=== PATIENT | male | born 1965 | race Caucasian/White ===

== ENCOUNTER → 2018-04-13 15:13 | Outpatient (CLI) | payer MEDICAID ==
[~2018-04-13 15:13] MED LIST: BAYER CHEWABLE81 MG PO; GLUCOPHAGE1000 MG PO; GLUCOTROL 5 MG T5 MG PO; NAPROSYN500 MG PO
[2018-04-19 06:34] VITALS: BMI 27.3
== END | disposition home or self-care (01) ==
LOC: D.CT 15:13
DX: I73.9 Peripheral vascular disease, unspecified (principal)

== ENCOUNTER → 2018-04-19 05:37 | Outpatient (CLI) | payer MEDICAID ==
[~2018-04-19] VITALS: Ht 185.4 cm; Wt 94.1 kg
--- NOTE | ~2018-04-19 | HEMODYNAMI ---
PATIENT:DONNIE AQUINO [place] MEDICAL RECORD: [id number] : 63 [id number] ADMISSION DATE: 04/19/18 Generatedon:04/19/201810:08 Patient name: DONNIE AQUINO Patient #: [id number] SSN: : 1965 Date of study: 04/19/2018 Page: Of Hemodynamic Procedure Report Patient Data Patient Demographics Procedure consent was obtained First Name: DONNIE Gender: Male Last Name: KENIA : 1965 [facility] Initial: VICTORIA Age: 52 year(s) Patient #: [id number] Race: Unknown Additional ID: [id number] Contact details Address: [address] State: [place] City: [place] Zip code: [address] Past Medical History Allergies: No known allergies Admission Admission Data Admission Date: 04/19/2018 Admission Time: 5:37 Procedure Procedure Types Cath Procedure Peripheral Cath Diagnostic Procedure Cath Peripheral Abd/Extremity Extremities Bilat Lower Extremity Procedure Description Procedure Date Procedure Date: 04/19/2018 Procedure Start Time: 8:32 Procedure Staff Name Function Alvaro Garcia MD Performing Physician Ani Painting RT Hurl Shaker Griselda Allen RN Nurse Pranay Flores RT Scrub Procedure Data Cath Procedure Fluoroscopy Diagnostic fluoroscopy Total fluoroscopy Time: time: 11.3 min 11.3 min Diagnostic fluoroscopy Total fluoroscopy dose: 679 dose: 679 mGy mGy Contrast Material Contrast Material Type Amount (ml) Isovue 300 105 Entry Location Entry Primary Successful Side Size Upsize Upsize Entry Closure Succes sful Closure Location (Fr) 1 (Fr) 2 (Fr) Remarks Device Remarks Femoral Exoseal artery Procedure Medications Medication Administration Route Dosage Lidocaine 1% added to field 20 Heparin Flush Bag added to field 3 bags (1000units/500ml NS) Fentanyl I.V. 50 mcg Versed I.V. 1 mg Fentanyl I.V. 50 mcg Versed I.V. 1 mg Heparin Bolus I.V. 5000 units Nitroglycerin IC/IA I.A. 200 mcg Nitroglycerin IC/IA I.A. 200 mcg Nitroglycerin IC/IA I.A. 200 mcg Hemodynamics Rest Heart Rate: 69 (bpm) Snapshots Pre Cath Intra NCS Post Cath Vital Signs Time Heart Resp SPO2 etCO2 NIBP (mmHg) Rhythm Pain Sedation Rate (ipm) (%) (mmHg) Status Level (bpm) 8:00:50 68 12 0 127/66(88) NSR 0 (11) 10(A) , No pain 8:05:01 66 37 100 0 138/75(104) NSR 0 (11) 10(A) , No pain 8:09:17 68 22 100 24.7 123/69(92) NSR 0 (11) 10(A) , No pain 8:13:29 67 16 98 26.2 130/67(93) NSR 0 (11) 10(A) , No pain 8:17:43 66 11 84 27.7 115/67(86) NSR 0 (11) 10(A) , No pain 8:21:53 67 34 99 28.5 128/70(98) NSR 0 (11) 10(A) , No pain 8:26:07 68 21 98 27.7 123/68(94) NSR 0 (11) 10(A) , No pain 8:30:23 68 17 25.5 122/64(96) NSR 0 (11) 10(A) , No pain 8:34:39 67 19 21.7 112/62(94) NSR 1 (11) 10(A) , Very mild 8:38:51 65 26 22.5 127/64(97) NSR 1 (11) 10(A) , Very mild 8:43:07 68 17 100 39 124/69(98) NSR 0 (11) 8(A) , No pain 8:47:26 69 16 100 35.3 125/62(96) NSR 0 (11) 8(A) , No pain 8:51:40 67 15 100 15 120/70(92) NSR 0 (11) 8(A) , No pain 8:55:53 67 14 100 23.2 119/66(92) NSR 0 (11) 8(A) , No pain 9:00:07 67 19 100 33.8 108/64(90) NSR 0 (11) 8(A) , No pain 9:04:19 69 13 99 39 116/59(87) NSR 0 (11) 8(A) , No pain 9:08:33 69 10 99 39 116/64(91) NSR 0 (11) 8(A) , No pain 9:12:43 69 12 99 15 122/66(94) NSR 0 (11) 8(A) , No pain 9:16:55 67 14 99 0 126/73(101) NSR 0 (11) 8(A) , No pain 9:21:11 69 13 100 25.5 123/67(92) NSR 0 (11) 8(A) , No pain 9:25:25 66 15 99 36 116/69(89) NSR 0 (11) 8(A) , No pain 9:29:37 65 17 99 34.5 117/65(97) NSR 0 (11) 8(A) , No pain 9:33:49 67 16 98 34.5 122/69(96) NSR 0 (11) 8(A) , No pain 9:38:03 70 16 100 35.2 113/65(88) NSR 0 (11) 8(A) , No pain 9:42:15 72 15 100 33 116/64(95) NSR 0 (11) 8(A) , No pain 9:46:29 68 19 100 33 118/61(88) NSR 0 (11) 8(A) , No pain 9:50:43 70 17 32.3 115/65(91) NSR 0 (11) 8(A) , No pain 9:54:53 69 11 33 118/69(86) NSR 0 (11) 8(A) , No pain 9:59:07 67 18 100 30 121/63(96) NSR 0 (11) 8(A) , No pain 10:03:19 66 20 27 119/68(88) NSR 0 (11) 8(A) , No pain 10:07:33 65 10 32.3 118/66(85) NSR 0 (11) 8(A) , No pain Medications Time Medication Route Dose Verified Delivered Reason Notes Effect iveness by by 8:11:11 Lidocaine 1% added 20ml Alvaro John used for to vial Jose Garcia MD procedure field 8:11:26 Heparin Flush added 3 Alvaro John used for Bag to bags Jose Garcia MD procedure (1000units/500ml field NS) 8:39:30 Fentanyl I.V. 50 Alvaro Villalobos for mcg Alejandro Garcia RN sedation 8:39:41 Versed I.V. 1 mg Alvaro Villalobos for Alejandro Garcia RN sedation 8:58:54 Fentanyl I.V. 50 Alvaro Villalobos for mcg Alejandro Garcia RN sedation 8:59:05 Versed I.V. 1 mg Alvaro Villalobos for Alejandro Garcia RN sedation 9:04:55 Heparin Bolus I.V. 5000 Alvaro Villalobos used for units Alejandro Garcia RN procedure 9:35:45 Nitroglycerin I.A. 200 Alvaro John used for IC/IA mcg Jose Garcia MD procedure 9:42:05 Nitroglycerin I.A. 200 Alvaro John used for IC/IA mcg Jose Garcia MD procedure 9:47:40 Nitroglycerin I.A. 200 Alvaro John used for IC/IA mcg Jose Garcia MD procedure Procedure Log Time Note 7:42:30 Use device set IR Diagnostic 7:55:31 Micropuncture VSI 4FR kit opened to sterile field. 7:55:32 SHEATH 5FR [place] (DGC516) opened to sterile field. 7:55:33 GLIDE WIRE ANGLE 260cm (FJ2478) opened to sterile field. 7:55:34 FIGUEROA 260 wire (V47075) opened to sterile field. 7:55:35 TUBING Contrast Injection High Pressure (MGC213Z) opened to sterile field. 7:55:36 SHEATH 6FR Destination (RSR01) opened to sterile field. 7:55:37 Tegaderm 4 x 4 (1626W) opened to sterile field. 7:55:38 Sterile Angiographic Pack opened to sterile field. 7:55:39 Bag Decanter (2002) opened to sterile field. 7:55:40 ACIST Manifold (39534) opened to sterile field. 7:55:41 ACIST Hand Control (13625) opened to sterile field. 7:55:42 ACIST Syringe (11951) opened to sterile field. 7:55:47 - 7:55:50 Time tracking: Regular hours (M-F 7:00 - 5:00) 7:56:38 Plan of Care:Hemodynamics will remain stable., Cardiac rhythm will remain stable., Comfort level will be maintained., Respiratory function will remain adequate., Patient/ family verbilizes understanding of procedure., Procedure tolerated without complication., Recovers from procedure without complications.. 7:56:59 Patient received from Outpatients to IR Alert and oriented. Tansferred to table in Supine position. 7:57:01 Signed procedure consent form obtained from patient. 7:57:09 H&P Date Dictated: 04/19/2018 Within 30 days and on chart.. 7:57:11 Pre-procedure instructions explained to patient. 7:57:11 Pre-op teaching completed and patient verbalized understanding. 7:57:14 Family unavailable. 7:57:17 Patient NPO since Midnight. 7:57:26 Patient allergic to No known allergies 7:57:30 Is the patient allergic to Iodine/contrast media? No. 7:57:34 Is patient on blood thinner?No 7:57:36 Patient diabetic? Yes. 7:57:39 If diabetic: On Metformin? Yes 7:58:02 If on Metformin: Last Dose? 04/18/2018 7:58:05 - 7:58:07 ----Pre-sedation anethsthesia assessment.---- 7:58:11 Previous problem with sedation/anesthesia? No ? 7:58:15 Snore? Yes 7:58:17 Sleep apnea? No 7:58:19 Deviated septum? No 7:58:21 Opens mouth fully? Yes 7:58:24 Sticks out tongue? Yes 7:58:28 Airway obstruction? No ? 7:58:33 Dentures? No ? 7:59:02 Pre procedure: right dorsailis pedis pulse Doppler 7:59:11 Pre procedure: left dorsailis pedis pulse Doppler 7:59:17 Pre procedure: right posterior tibial pulse Doppler 7:59:21 Pre procedure: left posterior tibial pulse Doppler 7:59:27 - 7:59:40 ECG and BP/O2 sat monitors applied to patient. 7:59:44 Vital chart was started 7:59:46 Baseline sample Acquired. 7:59:48 Full Disclosure recording started 7:59:49 - 8:00:05 Right groin area was prepped with chlora-prep and draped in sterile fashion 8:00:08 - 8:11:11 Lidocaine 1% 20ml vial added to field was administered by Alvaro Garcia MD; used for procedure; 8:11:26 Heparin Flush Bag (1000units/500ml NS) 3 bags added to field was administered by Alvaro Garcia MD; used for procedure; 8:13:05 CHOICE PT Extra Support J 300cm guide wire ([id number]) opened to steril e field. 8:29:05 DOC .035 wire (J64652) opened to sterile field. 8:29:31 Physician arrived 8:29:51 Angiodynamics Omniflush 5Fr 65cm ([id number]) opened to sterile field. 8:30:05 --------ALL STOP TIME OUT------ 8:30:07 Final Timeout: patient, procedure, and site verified with staff and physician. All members of the team are in agreement. 8:32:00 Procedure started. 8:32:19 Local anesthetic to right femoral artery with Lidocaine 1% by Alvaro Garcia MD.INITIAL ACCESS ONLY 8:39:05 Arterial access obtained using ultrasound guidance. 8:39:30 Fentanyl 50 mcg I.V. was administered by Griselda Allen RN; for sedation ; 8:39:41 Versed 1 mg I.V. was administered by Griselda Allen RN; for sedation; 8:47:54 GLIDE CATHETER 5FR ANGLED 65cm (CG507) opened to sterile field. 8:48:57 TORQUE DEVICE PLASTIC .038 ( TD01) opened to sterile field. 8:49:29 Angiography was performed. 8:58:54 Fentanyl 50 mcg I.V. was administered by Griselda Allen RN; for sedation ; 8:59:05 Versed 1 mg I.V. was administered by Griselda Allen RN; for sedation; 9:03:30 [employer] Medium Atherectomy System (H1-M) opened to sterile field. 9:03:46 CXI SUPPORT .035 135 CM STR catheter (B70101) opened to sterile field. 9:04:55 Heparin Bolus 5000 units I.V. was administered by Griselda Allen RN; use d for procedure; 9:06:16 INFLATOR BasixTOUCH (ST9915) opened to sterile field. 9:12:27 SPIDER EMBOLIC PROTECTION DEVICE 3MM ([id number]) opened to sterile field. 9:25:01 Inflate balloon Inflation number: 1 A IN.PACT Admiral 5 x 40 x 130 DCB Balloon ([id number]) was prepped and advanced across the Undefined1, then inflated 9:32:36 Inflate balloon Inflation number: 1 A CHOCOLATE 2.5 x 120 x 150 balloon ([id number]) was prepped and advanced across the Undefined2, then inflated to 0 WESLEY for 0:00 (min:sec). 9:34:30 Timer 1 started at 9:25 AM, stopped at 9:34 AM, duration 00:08:32 sec. 9:35:45 Nitroglycerin IC/IA 200 mcg I.A. was administered by Alvaro Garcia MD; used for procedure; 9:42:05 Nitroglycerin IC/IA 200 mcg I.A. was administered by Alvaro Garcia MD; used for procedure; 9:44:02 Inflate balloon Inflation number: 1 A CHOCOLATE 3.0 x 120 x 150 balloon ([id number]) was prepped and advanced across the Undefined3, then inflated to 0 WESLEY for 0:00 (min:sec). 9:45:55 Timer 1 started at 9:43 AM, stopped at 9:45 AM, duration 00:02:03 sec. 9:47:40 Nitroglycerin IC/IA 200 mcg I.A. was administered by Alvaro Garcia MD; used for procedure; 9:52:10 SHEATH 6FR [place] (FIQ492) opened to sterile field. 9:55:37 Timer 2 started at 9:34 AM, stopped at 9:55 AM, duration 00:21:00 sec. 9:55:46 Timer 1 started at 9:55 AM, stopped at 9:55 AM, duration 00:00:15 sec. 10:01:42 EXOSEAL 6Fr (EX600) opened to sterile field. 10:01:58 A sheath was inserted into the Femoral artery 10:01:58 Sheath removed intact; hemostasis achieved with Exoseal to the Femoral artery. 10:02:01 Procedure ended.(Physican Out) 10:03:39 Fluoroscopy time 11.30 minutes. 10:03:44 Flurop Dose total: 679 10:03:44 Fluoroscopy dose: 679 mGy 10:03:52 Contrast amount:Isovue 300 105ml. 10:07:44 Procedure and supply charges have been captured, reviewed, submitted an d are correct. 10:07:50 Report given to Outpatients. 10:07:57 Patient transfered to Outpatients with Stretcher. 10:08:41 Vital chart was stopped Intervention Summary Intervention Notes Time ActionType Lesion and Equipment Used Action# Pressure Duration Attributes 9:25:01 Inflate Undefined1 IN.PACT Admiral 5 1 0 00:00 balloon x 40 x 130 DCB Balloon ([id number]) 9:32:36 Inflate Undefined2 CHOCOLATE 2.5 x 1 0 00:00 balloon 120 x 150 balloon ([id number]) 9:44:02 Inflate Undefined3 CHOCOLATE 3.0 x 1 0 00:00 balloon 120 x 150 balloon ([id number]) Device Usage Item Name Manufacture Quantity Catalog Number Hospital Part Curr ent Minimal Lot# / Charge Number Stock Stock Serial# Code Micropuncture VSI VSI VASCULAR 1 [id number] [id number] 3694 95 5 4FR kit SOLUTIONS SHEATH 5FR Terumo 1 ZHR329 599312 612776 3383 84 40 [place]on (RGI976) GLIDE WIRE ANGLE Terumo 1 VH2016 233752 470216 0624 08 5 260cm (AO9615) FIGUEROA 260 wire ID [employer] 1 I14417 615592 96930 9996 95 5 (R36117) TUBING Contrast [facility] 1 [id number] 282774 173208 9801 90 5 Injection High Pressure ([id number]) SHEATH 6FR Terumo 1 RSR01 967533 03348 9997 65 5 Destination (RSR01) Tegaderm 4 x 4 3M 1 1626W 718716 662580 1149 29 5 (1626W) Sterile Cardinal 1 [id number] 788159 0118 17 5 Angiographic Pack Health Bag Decanter Microtek 1 2001S 708642 66710 9898 60 5 (2001S) Medical Inc. ACIST Manifold Acist Medical 1 32435 096172 336004 9312 80 5 (74917) Systems Inc ACIST Hand Acist Medical 1 89881 491820 271669 4241 63 5 Control (31735) Systems Inc ACIST Syringe Acist Medical 1 40731 311098 200665 2896 41 20 (48896) Systems Inc CHOICE PT Extra [place] 1 [id number] 768909 972662 0024 66 5 Support J 300cm Scientific guide wire ([id number]) Angiodynamics Angiodynamics 1 89220840 358290 074866 9256 84 5 Omniflush 5Fr 65cm (01324570) DOC .035 wire [employer] 1 D25486 602845 5865 26 5 (E07183) GLIDE CATHETER Terumo 1 CG507 529392 8620 19 5 5FR ANGLED 65cm (CG507) TORQUE DEVICE [place] 1 TD01 296953 425272 0812 88 5 PLASTIC .038 ( Scientific TD01) Hawkone Medium Medtronic 1 H1-M 137257 9555 9997 5 Atherectomy System (H1-M) CXI SUPPORT .035 [employer] 1 I57692 898281 357527 3474 74 5 [id number] 135 CM STR catheter (G92137) INFLATOR [facility] 1 EY4847 029949 070678 8474 79 5 BasixTOUCH (QF2379) SPIDER EMBOLIC Medtronic 1 FZK1-JW-780-320 953933 0177 87 5 PROTECTION DEVICE 3MM ([id number]) IN.PACT Admiral 5 Medtronic 1 [id number] 153839 799139 1329 92 5 [id number] x 40 x 130 DCB Balloon ([id number]) CHOCOLATE 2.5 x Cardinal 1 [id number] O 187937 458222 5179 95 5 [id number] 120 x 150 balloon Health TW [id number] ([id number]) [id number] CHOCOLATE 3.0 x Cardinal 1 [id number] O 813293 486080 5185 96 5 [id number] 120 x 150 balloon Health TW [id number] ([id number]) [id number] SHEATH 6FR Terumo 1 FST657 820087 209444 1963 40 40 [place] (GZI587) EXOSEAL 6Fr Cardinal 1 EX600 822053 222159 6546 07 10 (EX600) Health Signature Audit [place] Stage Time Signature Unsigned Intra-Procedure 04/19/2018 Ani Painting 10:08:36 AM RT(R) [facility] [address] [place] [address]
[2018-04-19 05:54] LABS: BASOPHILS 0.4 % (0-2); EOSINOPHILS 1.8 % (0-7); HEMATOCRIT 40.3 % (42.0-54.0); HEMOGLOBIN 14.5 g/dL (13.5-17.5); IMMATURE GRANULOCYTES 0.2 % (0-5); LYMPHOCYTES 43.8 % (15-50); MCH 32.7 pg (26.0-34.0); MEAN PLATELET VOLUME 10.3 fL (7.4-10.4); MONOCYTES 6.1 % (2-11); NEUTROPHILS 47.7 % (40-80); PLATELET COUNT 164 10x3/uL (130-400); RBC 4.43 10x6/uL (4.20-6.10); WBC 14.5 10x3/uL (4.8-10.8)
[2018-04-19 06:04] LABS: APTT 28.9 SECONDS (22.8-39.4); INR 1.02 (0.85-1.17)
[2018-04-19 06:13] LABS: ANION GAP 17.4 mmol/L (8-16); CARBON DIOXIDE 22.5 mmol/L (21.0-32.0); CREATININE - SERUM 1.1 mg/dL (0.6-1.3); POTASSIUM - SERUM 3.9 mmol/L (3.5-5.1)
[2018-04-19 06:34] VITALS: BP 113/70; Ht 185.4 cm; Wt 94.1 kg
== END | disposition home or self-care (01) ==
LOC: D.SP 05:37 → D.OPS 05:37 → D.RAD 08:00
PROVIDERS: General Practice
DX: I70.249 Atherosclerosis of native arteries of left leg with ulceration of unspecified site (principal); Z01.812 Encounter for preprocedural laboratory examination

== ENCOUNTER 2018-09-06 09:27 | Outpatient (CLI) | payer MEDICAID ==
[~2018-09-06] VITALS: Ht 185.4 cm; Wt 90.9 kg
--- NOTE | ~2018-09-06 | HEMODYNAMI ---
PATIENT:DONNIE AQUINO RENOVO MEDICAL RECORD: [id number] : 63 LOCATION:[facility] ADMISSION DATE: 09/06/18 Generatedon:09/06/201814:06 Patient name: DONNIE AQUINO Patient #: [id number] SSN: : 1965 Date of study: 09/06/2018 Page: Of Hemodynamic Procedure Report Patient Data Patient Demographics First Name: DONNIE Gender: Male Last Name: KENIA : 1965 Middle Initial: RENOVO Age: 53 year(s) Patient #: [id number] Race: Unknown Additional ID: [id number] Contact details Address: [facility] [address] State: [place] City: [place] Zip code: [address] Past Medical History Allergies: No known allergies Admission Admission Data Admission Date: 09/06/2018 Admission Time: 9:27 Procedure Procedure Types Cath Procedure Peripheral Cath Diagnostic Procedure Venography Extremity Procedure Description Procedure Date Procedure Date: 09/06/2018 Procedure Start Time: 12:15 Procedure Staff Name Function Alvaro Garcia MD Performing Physician Pranay Flores RT Monitor Erika Hargrove MD Additional personnel Dani Bergeron CRNA Additional personnel Beatriz Allen RN Nurse Procedure Data Cath Procedure Fluoroscopy Diagnostic fluoroscopy Total fluoroscopy Time: 7.5 time: 7.5 min min Diagnostic fluoroscopy Total fluoroscopy dose: 412 dose: 412 mGy mGy Entry Location Entry Primary Successful Side Size Upsize 1 Upsize Entry Closure Velasquez ccessful Closure Location (Fr) (Fr) 2 (Fr) Remarks Device Remarks Femoral Left 5 Fr 6 Fr artery Mid-Length Procedure Medications Medication Administration Route Dosage Lidocaine 1% added to field 20 Heparin Flush Bag added to field 3 bags (1000units/500ml NS) Heparin Bolus I.V. 5000 units Nitroglycerin IC/IA I.A. 200 mcg Nitroglycerin IC/IA I.A. 200 mcg Nitroglycerin IC/IA I.A. 200 mcg Hemodynamics Rest Heart Rate: 66 (bpm) Snapshots Pre Cath Intra NCS Post Cath Vital Signs Time Heart Resp SPO2 etCO2 NIBP (mmHg) Rhythm Pain Sedation Rate (ipm) (%) (mmHg) Status Level (bpm) 11:50:56 65 13 100 0 124/72(91) NSR 0 (11) 10(A) , No pain 11:55:05 72 0 119/82(101) NSR 0 (11) 10(A) , No pain 11:59:15 68 20 85 0 117/70(92) NSR 0 (11) 10(A) , No pain 12:03:25 63 17 84 0 107/67(82) NSR 0 (11) 10(A) , No pain 12:07:33 63 19 99 0 103/61(83) NSR 0 (11) 10(A) , No pain 12:11:39 64 20 99 0 105/61(81) NSR 0 (11) 10(A) , No pain 12:15:47 66 20 99 0 108/59(81) NSR 0 () 10(A) , No pain 12:19:56 60 14 99 0 102/59(83) NSR 0 () 10(A) , No pain 12:24:02 61 20 99 0 110/63(86) NSR 0 () 10(A) , No pain 12:28:10 62 10 99 0 108/64(82) NSR 0 () 10(A) , No pain 12:32:18 66 22 99 0 108/62(91) NSR 0 (11) 10(A) , No pain 12:36:28 64 27 99 0 102/56(81) NSR 0 () 10(A) , No pain 12:40:38 65 14 99 0 98/54(72) NSR 0 (11) 10(A) , No pain 12:44:41 65 37 99 0 94/61(76) NSR 0 (11) 10(A) , No pain 12:48:47 66 31 99 0 93/54(69) NSR 0 (11) 10(A) , No pain 12:52:53 66 14 99 0 91/51(67) NSR 0 (11) 10(A) , No pain 12:57:01 65 14 99 0 89/47(67) NSR 0 (11) 10(A) , No pain 13:01:07 65 15 99 0 89/49(75) NSR 0 (11) 10(A) , No pain 13:05:10 65 16 99 0 92/54(74) NSR 0 (11) 10(A) , No pain 13:09:16 65 16 99 0 93/52(71) NSR 0 (11) 10(A) , No pain 13:13:22 64 15 99 0 92/52(69) NSR 0 (11) 10(A) , No pain 13:17:28 65 16 99 0 96/52(78) NSR 0 (11) 10(A) , No pain 13:21:36 65 16 99 0 95/51(79) NSR 0 (11) 10(A) , No pain 13:25:43 65 16 99 0 97/51(74) NSR 0 (11) 10(A) , No pain 13:29:49 67 16 99 0 90/57(77) NSR 0 (11) 10(A) , No pain 13:33:53 68 16 99 0 95/58(75) NSR 0 (11) 10(A) , No pain 13:38:01 67 16 99 0 93/51(75) NSR 0 (11) 10(A) , No pain 13:42:04 67 16 99 0 92/60(76) NSR 0 (11) 10(A) , No pain 13:46:10 67 16 99 0 95/53(74) NSR 0 (11) 10(A) , No pain 13:50:16 66 16 99 0 102/54(78) NSR 0 (11) 10(A) , No pain 13:54:22 67 12 98 0 122/62(92) NSR 0 (11) 10(A) , No pain 13:58:34 68 11 98 0 124/66(92) NSR 0 (11) 10(A) , No pain 14:03:00 0 No Cuff NSR 0 (11) 10(A) , No pain Medications Time Medication Route Dose Verified Delivered Reason Notes Effec tiveness by by 12:12:03 Lidocaine 1% added 20ml Alvaro John used for to vial Jose Garcia MD procedure field MD 12:12:20 Heparin Flush added 3 Alvaro John used for Bag to bags Jose Garcia MD procedure (1000units/500ml field MD BURROWS) 12:47:07 Heparin Bolus I.V. 5000 Alvaro henderson units MD Jose 13:11:33 Nitroglycerin I.A. 200 Alvaro John IC/IA mcg Jose Garcia MD MD 13:29:13 Nitroglycerin I.A. 200 Alvaro John IC/IA mcg Jose Garcia MD MD 13:32:53 Nitroglycerin I.A. 200 Alvaro John IC/IA mcg Jose Garcia MD MD Procedure Log Time Note 11:38:35 Pranay Sandra RT (R) (CV) sent for patient. Start room use. 11:38:55 Time tracking: Regular hours (M-F 7:00 - 5:00) 11:39:01 Plan of Care:Hemodynamics will remain stable., Cardiac rhythm will remain stable., Comfort level will be maintained., Respiratory function will remain adequate., Patient/ family verbilizes understanding of procedure., Procedure tolerated without complication., Recovers from procedure without complications.. 11:39:10 Patient received from Outpatients to IR Alert and oriented. Tansferred to table in Supine position. 11:39:12 - 11:40:01 Use device set IR Diagnostic 11:40:02 ACIST Syringe (66176) opened to sterile field. 11:40:03 ACIST Hand Control (09792) opened to sterile field. 11:40:03 ACIST Manifold (26731) opened to sterile field. 11:40:03 Bag Decanter (2001S) opened to sterile field. 11:40:04 Sterile Angiographic Pack opened to sterile field. 11:40:04 Tegaderm 4 x 4 (1626W) opened to sterile field. 11:49:49 Vital chart was started 11:49:50 Baseline sample Acquired. 11:49:55 H&P Date Dictated: 09/06/2018 H&P Addendum completed by physician on da y of procedure. (MUST COMPLETE FOR ALL OUTPATIENTS). 11:49:57 Pre-op teaching completed and patient verbalized understanding. 11:49:59 - 11:50:16 SEE ANESTHESIA NOTE FOR PRE PROCEDURE TIVA 11:50:34 Left groin area was prepped with chlora-prep and draped in sterile fashion 11:50:37 Pre procedure: right dorsailis pedis pulse Doppler 11:50:40 Pre procedure: left dorsailis pedis pulse Doppler 11:50:43 Pre procedure: right posterior tibial pulse Doppler 11:50:46 Pre procedure: left posterior tibial pulse Doppler 11:50:50 Sharps counted by scrub and verified by R.N. 11:50:50 Alarms reviewed by R. N. 12:12:03 Lidocaine 1% 20ml vial added to field was administered by Alvaro Garcia MD; used for procedure; 12:12:20 Heparin Flush Bag (1000units/500ml NS) 3 bags added to field was administered by Alvaro Garcia MD; used for procedure; 12:12:46 sedation per anesthesia 12:15:06 Physician arrived 12:15:06 --------ALL STOP TIME OUT------ 12:15:07 Final Timeout: patient, procedure, and site verified with staff and physician. All members of the team are in agreement. 12:15:10 Left groin site verified by team. 12:15:19 Sedation plan: General Anesthesia Medication:General Anesthesia 12:15:30 Procedure started. 12:15:30 Full Disclosure recording started 12:15:35 Local anesthetic to left femerol artery with Lidocaine 1% by Alvaro Garcia MD.INITIAL ACCESS ONLY 12:15:43 Access obtained with 4Fr micropunture. 12:15:54 A 5 Fr sheath was inserted into the Left Femoral artery 12:15:58 Angiodynamics Omniflush 5Fr 65cm ([id number]) opened to sterile field. 12:15:58 SHEATH 5FR [place] (DSE959) opened to sterile field. 12:15:58 TUBING Contrast Injection High Pressure (RCM587P) opened to sterile field. 12:15:59 Micropuncture VSI 4FR kit opened to sterile field. 12:15:59 DOC .035 wire (F59940) opened to sterile field. 12:15:59 FIGUEROA 260 wire (O09831) opened to sterile field. 12:26:27 GLIDE WIRE ANGLE 180cm (UZ3166) opened to sterile field. 12:28:28 SHEATH 6FR Destination (RSR01) opened to sterile field. 12:36:31 Sheath upsized to a 6 Fr Mid-Length. 12:36:41 INFLATOR BasixTOUCH (OQ2269) opened to sterile field. 12:41:05 GLIDE WIRE MERIT Angled 260cm ([id number]) opened to sterile field. 12:42:56 GLIDE CATHETER 5FR ANGLED 100cm (CG508) opened to sterile field. 12:43:02 TORQUE DEVICE PLASTIC .038 ( TD01) opened to sterile field. 12:47:07 Heparin Bolus 5000 units I.V. was administered by beatriz; ; 12:48:49 Inflate balloon Inflation number: 1 A [place] 5 x 4 x 135 Balloon ([id number]) was prepped and advanced across the Mid Superficial Femoral, Right, then inflated to 14 [place]ES[place] for 0:36 (min:sec). 12:48:53 CHOICE PT Extra Support J 300cm guide wire ([id number]) opened to steril e field. 12:58:42 Inflate balloon Inflation number: 2 A IN.PACT Admiral 5 x 40 x 130 DCB Balloon ([id number]) was prepped and advanced across the Mid Superficial Femoral, Right, then inflated to 8 WESLEY for 3:23 (min:sec). 13:00:00 Trailblazer 0.035 135cm catheter ([id number]) opened to sterile field. 13:11:33 Nitroglycerin IC/IA 200 mcg I.A. was administered by Alvaro Garcia MD; ; 13:14:53 Inflate balloon Inflation number: 1 A CHOCOLATE 3.0 x 120 x 150 balloon ([id number]) was prepped and advanced across the Undefined1, then inflated to 12 WESLEY for 2:03 (min:sec). 13:17:51 Inflation number: 2 The CHOCOLATE 3.0 x 120 x 150 balloon ([id number]) was reinflated across the Undefined1, to 12 WESLEY for 2:41 (min:sec). 13:22:03 Inflation number: 3 The CHOCOLATE 3.0 x 120 x 150 balloon ([id number]) was reinflated across the Undefined1, to 12 [place]ES[place] for 1:47 (min:sec). 13:24:28 Inflation number: 4 The CHOCOLATE 3.0 x 120 x 150 balloon ([id number]) was reinflated across the Undefined1, to 10 WESLEY for 1:20 (min:sec). 13:29:13 Nitroglycerin IC/IA 200 mcg I.A. was administered by Alvaro Garcia MD; ; 13:30:16 SHEATH 6FR [place] (ZRI066) opened to sterile field. 13:32:53 Nitroglycerin IC/IA 200 mcg I.A. was administered by Alvaro Garcia MD; ; 13:42:50 EXOSEAL 6Fr (EX600) opened to sterile field. 13:55:09 Procedure ended.(Physican Out) 13:55:33 Fluoroscopy time 07.50 minutes. 13:55:37 Flurop Dose total: 412 13:55:37 Fluoroscopy dose: 412 mGy 13:55:40 Sharps counted by scrub and verified by R.N. 13:55:54 SEE ANESTHESIA NOTE FOR POST PROCEDURE TIVA 13:56:05 Post-op/insertion site Left Femoral artery dressed using a 4 x 4 and Tegaderm. 13:56:09 Post left femerol artery:stable 13:56:14 Post Procedure Pulses reassessed and unchanged 13:56:43 Post procedure instruction explained to patient.Patient verbalizes understanding. 13:57:00 Procedure and supply charges have been captured, reviewed, submitted an d are correct. 14:05:43 Report given to Outpatients. 14:05:56 Patient transfered to Outpatients with Stretcher. 14:06:26 Vital chart was stopped Intervention Summary Intervention Notes Time ActionType Lesion and Equipment Used Action# Pressure Duration Attributes 12:48:49 Inflate Mid [place] 5 x 4 x 1 14 00:36 balloon Superficial 135 Balloon Femoral, ([id number]) Right 12:58:42 Inflate Mid IN.PACT Admiral 5 2 8 03:23 balloon Superficial x 40 x 130 DCB Femoral, Balloon Right ([id number]) 13:14:53 Inflate Undefined1 CHOCOLATE 3.0 x 1 12 02:03 balloon 120 x 150 balloon ([id number]) 13:17:51 Reinflate Undefined1 CHOCOLATE 3.0 x 2 12 02:41 balloon 120 x 150 balloon ([id number]) 13:22:03 Reinflate Undefined1 CHOCOLATE 3.0 x 3 12 01:47 balloon 120 x 150 balloon ([id number]) 13:24:28 Reinflate Undefined1 CHOCOLATE 3.0 x 4 10 01:20 balloon 120 x 150 balloon ([id number]) Device Usage Item Name Manufacture Quantity Catalog Number [facility] Minimal Lot# / Charge Number Stock Stock Serial# Code ACIST Syringe Acist Medical 1 45447 477959 160032 102321 20 (52963) Systems Inc ACIST Hand Acist Medical 1 74732 185637 127912 300168 5 Control (29192) Systems Inc ACIST Manifold Acist Medical 1 04883 238521 629322 057662 5 (79308) Systems Inc Bag Decanter Microtek 1 2001S 824578 92965 664536 5 (2001S) Medical Inc. Sterile Cardinal 1 [id number] 729561 321469 5 Angiographic [facility] Tegaderm 4 x 4 3M 1 1626W 427014 954275 657318 5 (1626W) Angiodynamics Angiodynamics 1 77352361 030598 210093 900261 5 Omniflush 5Fr 65cm (56076166) SHEATH 5FR Terumo 1 RWR799 911479 081297 048930 40 [place] (LIJ623) TUBING Contrast [facility] 1 LWC101E 430820 481799 814818 5 Injection High Pressure (TCD473Q) Micropuncture VSI VSI VASCULAR 1 7266V 943293 873319 5 4FR kit SOLUTIONS DOC .035 wire [employer] [facility] 1 I95318 739523 685127 5 (A21990) FIGUEROA 260 wire [employer] 1 W22227 780733 76091 366610 5 (T29390) GLIDE WIRE ANGLE Terumo 1 WY3924 009154 828243 935165 5 180cm (HH1661) SHEATH 6FR Terumo 1 RSR01 098188 83284 027083 5 Destination (RSR01) INFLATOR [facility] 1 BO8458 853261 227922 240410 5 BasixTOUCH (BK5467) GLIDE WIRE MERIT [facility] 1 [id number] 353115 442401 511730 5 [id number] Angled 260cm ([id number]) GLIDE CATHETER Terumo 1 CG508 087370 93767 101516 4 5FR ANGLED 100cm (CG508) TORQUE DEVICE [place] 1 TD01 516393 401876 078117 5 PLASTIC .038 ( Scientific TD01) [place] 5 x 4 x Medtronic 1 [id number] 645361 966390 611866 5 135 Balloon ([id number]) CHOICE PT Extra [place] 1 [id number] 203569 975157 919172 5 [id number] Support J 300cm Scientific guide wire (5680137H7) IN.PACT Admiral 5 Medtronic 1 [id number] 252240 505990 798755 5 [id number] x 40 x 130 DCB Balloon ([id number]) Trailblazer 0.035 Medtronic 1 ASC-035-135 345284 76050 048004 5 135cm catheter (FAX668583) CHOCOLATE 3.0 x Medtronic 1 [id number] 087246 610001 699185 5 120 x 150 balloon O ([id number]) TW SHEATH 6FR Terumo 1 VHV161 297485 623183 901767 40 [place] (TXN757) EXOSEAL 6Fr Cardinal 1 EX600 426486 584798 927367 10 [id number] (EX600) Health Signature Audit [place] Stage Time Signature Unsigned Intra-Procedure 09/06/2018 Pranay 2:06:22 PM [place] RT (R) (CV) Signatures Monitor : Pranay Signature : [place] RT Date : Time : [place] [address] [address] [address]
[2018-09-06 10:30] LABS: BASOPHILS 0.4 % (0-2); EOSINOPHILS 1.7 % (0-7); HEMATOCRIT 37.1 % (42.0-54.0); HEMOGLOBIN 13.1 g/dL (13.5-17.5); IMMATURE GRANULOCYTES 0.1 % (0-5); LYMPHOCYTES 49.8 % (15-50); MCH 31.7 pg (26.0-34.0); MCHC 35.3 g/dL (31.0-37.0); MCV 89.8 fL (80.0-100.0); MEAN PLATELET VOLUME 10.6 fL (7.4-10.4); MONOCYTES 4.7 % (2-11); NEUTROPHILS 43.3 % (40-80); PLATELET COUNT 140 10x3/uL (130-400); RBC 4.13 10x6/uL (4.20-6.10); RDW 13.1 % (11.5-14.5); WBC 9.4 10x3/uL (4.8-10.8)
[2018-09-06 10:33] LABS: CALC OSMOLALITY 283 mosm/kg (275-300); CALCIUM 9.4 mg/dL (8.5-10.1); CARBON DIOXIDE 29.7 mmol/L (21.0-32.0); CHLORIDE - SERUM 106 mmol/L (98-107); CREATININE - SERUM 0.9 mg/dL (0.6-1.3); GLUCOSE 165 mg/dL (74-106); POTASSIUM - SERUM 4.1 mmol/L (3.5-5.1); SODIUM 141 mmol/L (136-145); UREA NITROGEN 9 mg/dL (7-18); eGFR NON AFRICAN AMERICAN > 90 mL/min (90-120)
[2018-09-06 10:39] VITALS: Ht 185.4 cm; Wt 90.9 kg
[2018-09-06] MEDS ORDERED: PLAVIX75 MG PO (10:42)
[2018-09-06] MEDS ORDERED: GINGER500 MG PO (10:43)
[2018-09-06] MEDS ORDERED: CINNAMON500 MG PO (10:43)
[2018-09-06] MEDS ORDERED: MULTI-DAY VITAM1 TAB PO (10:43)
[2018-09-06] MEDS ORDERED: ASCORBIC ACID500 MG PO (10:44)
[2018-09-06 10:51] LABS: INR 1.05 (0.85-1.17); PROTIME 13.4 SECONDS (11.6-15.0)
== END 2018-09-06 17:16 | disposition home or self-care (01) ==
LOC: D.SP 09:27
PROVIDERS: General Practice
DX: I70.213 Atherosclerosis of native arteries of extremities with intermittent claudication, bilateral legs (principal); I70.223 Atherosclerosis of native arteries of extremities with rest pain, bilateral legs; Z01.812 Encounter for preprocedural laboratory examination

== ENCOUNTER → 2019-12-15 14:28 | Outpatient (CLI) | payer MEDICAID ==
[2018-09-06 10:39] VITALS: BMI 26.4
[~2019-12-15 14:28] MED LIST changes: +ASCORBIC ACID500 MG PO; +CINNAMON500 MG PO; +GINGER500 MG PO; +MULTI-DAY VITAM1 TAB PO; +PLAVIX75 MG PO
== END | disposition home or self-care (01) ==
LOC: D.CT 14:28
PROVIDERS: ATTEND General Practice
DX: I73.9 Peripheral vascular disease, unspecified (principal); S81.802A Unspecified open wound, left lower leg, initial encounter

== ENCOUNTER 2020-04-03 07:47 | Outpatient (CLI) | payer MEDICAID ==
[~2020-04-03] VITALS: Ht 182.9 cm; Wt 85.5 kg
--- NOTE | ~2020-04-03 | HEMODYNAMI ---
PATIENT:DONNIE AQUINO [place] MEDICAL RECORD: [id number] : 63 [id number] ADMISSION DATE: 04/03/20 Generatedon:04/03/202013:04 Patient name: DONNIE AQUINO Patient #: [id number] SSN: : 1965 Date of study: 04/03/2020 Page: Of Hemodynamic Procedure Report Patient Data Patient Demographics Procedure consent was obtained First Name: DONNIE Gender: Male Last Name: KENIA : 1965 [facility] Initial: [place] Age: 54 year(s) Patient #: [id number] Race: Unknown Additional ID: [id number] Contact details Address: [address] State: [place] City: [place] Zip code: [address] Past Medical History Allergies: No known allergies Admission Admission Data Admission Date: 04/03/2020 Admission Time: 7:47 Procedure Procedure Types Cath Procedure Peripheral Cath Diagnostic Procedure Abd/Extremity Extremities AFRO Lower Ext Arterio Procedure Description Procedure Date Procedure Date: 04/03/2020 Procedure Start Time: 11:25 Procedure Staff Name Function Alvaro Garcia MD Performing Physician Yanet SQUIRES RN Nurse BENEDICT ART RT Scrub Pranay Flores RT Monitor Fab Chong CRNA Additional personnel Procedure Data Cath Procedure Fluoroscopy Diagnostic fluoroscopy Total fluoroscopy Time: time: 18.7 min 18.7 min Diagnostic fluoroscopy Total fluoroscopy dose: 407 dose: 407 mGy mGy Contrast Material Contrast Material Type Amount (ml) Isovue 300 130 Procedure Medications Medication Administration Route Dosage Heparin Flush Bag added to field 2 bags (1000units/500ml NS) Heparin Flush Bag added to field 1 bags (1000units/500ml NS) Lidocaine 1% added to field 20 Heparin Bolus I.V. 5000 units Nitroglycerin IC/IA I.A. 300 mcg Hemodynamics Rest Pre Cath Intra NCS Post Cath Medications Time Medication Route Dose Verified Delivered Reason Notes Effectiveness by by 11:32:22 Heparin Flush added 2 Alvaro Holt used for Bag to bags Burda, SHAW procedure (1000units/500ml field RN NS) 11:32:24 Heparin Flush added 1 Alvaro Davisr used for Bag to bags Burda, SHAW procedure (1000units/500ml field RN NS) 11:32:36 Lidocaine 1% added 20ml Alvaro Holt used for to vial Burda, SHAW procedure field MD CORDOVA 11:51:30 Heparin Bolus I.V. 5000 Alvaro Holt for units Luisaa, SHAW anticoagulation MD CORDOVA 12:29:04 Nitroglycerin I.A. 300 Alvaro John for IC/IA mcg Jose Garcia, MD kvng ENRIQUE Procedure Log Time Note 10:56:07 Pranay Flores RT (R) (CV) sent for patient. Start room use. 10:56:17 Time tracking: Regular hours (M-F 7:00 - 5:00) 10:56:23 Plan of Care:Hemodynamics will remain stable., Cardiac rhythm will remain stable., Comfort level will be maintained., Respiratory function will remain adequate., Patient/ family verbilizes understanding of procedure., Procedure tolerated without complication., Recovers from procedure without complications.. 10:56:28 Use device set IR Diagnostic 10:56:30 ACIST Syringe (64110) opened to sterile field. 10:56:30 ACIST Hand Control (00881) opened to sterile field. 10:56:30 ACIST Manifold (60092) opened to sterile field. 10:56:31 Bag Decanter (2001S) opened to sterile field. 10:56:31 Sterile Angiographic Pack opened to sterile field. 10:56:32 Tegaderm 4 x 4 (1626W) opened to sterile field. 10:56:40 Patient received from Outpatients to [facility] 1 Alert and oriented. Tansferred to table in Supine position. 10:56:41 Fab Chong CRNA present and monitoring patient for TIVA. 10:56:42 Correct patient and procedure confirmed by team. 10:56:44 Signed procedure consent form obtained from patient. 10:56:46 Full Disclosure recording started 10:56:46 - 10:57:02 SEE ANESTHESIA NOTE FOR PRE ANESTHESIA 10:57:06 - 10:57:18 Right groin area was prepped with chlora-prep and draped in sterile fashion 11:03:03 Pre procedure: right dorsailis pedis pulse Doppler 11:03:08 Pre procedure: left dorsailis pedis pulse Doppler 11:03:11 Pre procedure: right posterior tibial pulse Doppler 11:03:16 Pre procedure: left posterior tibial pulse None 11:23:51 Physician arrived 11:23:51 --------ALL STOP TIME OUT------ 11:23:52 Final Timeout: patient, procedure, and site verified with staff and physician. All members of the team are in agreement. 11:23:54 Right groin site verified by team. 11:24:01 Fire Safety Assessment: A--An alcohol-based skin anteseptic being used preoperatively., C--Open oxygen or nitrous oxide is being used. 11:24:10 Sedation plan: General Anesthesia Medication:General Anesthesia 11:24:47 2) 60-89 Mildly reduced kidney function, and other findings (as for stage 1) point to kidney disease. 11:25:14 Maximum allowable contrast dose (3.7 X eGFR X 0.75)205 ml. 11:25:28 Procedure started. 11:25:33 Local anesthetic to right femoral artery with Lidocaine 1% by Alvaro Garcia MD.INITIAL ACCESS ONLY 11:25:47 TUBING Contrast Injection High Pressure (ALE996P) opened to sterile field. 11:25:48 SHEATH 5FR [place] (LOA086) opened to sterile field. 11:25:48 Micropuncture VSI 4FR kit opened to sterile field. 11:25:48 SHEATH 5FR [place] (ZLU526) opened to sterile field. 11:25:49 DOC .035 wire (E76907) opened to sterile field. 11:25:49 FIGUEROA 180cm wire (W43056) opened to sterile field. 11:25:50 FIGUEROA 260 wire (D65433) opened to sterile field. 11:25:50 CHOICE PT Extra Support J 300cm guide wire ([id number]) opened to steril e field. 11:25:50 GLIDE CATHETER 5FR ANGLED 65cm (CG507) opened to sterile field. 11:25:50 GLIDE WIRE ANGLE 260cm (LR7059) opened to sterile field. 11:32:22 Heparin Flush Bag (1000units/500ml NS) 2 bags added to field was administered by Yanet SQUIRES RN; used for procedure; Verbal order read back and verified. 11:32:24 Heparin Flush Bag (1000units/500ml NS) 1 bags added to field was administered by Yanet SQUIRES RN; used for procedure; Verbal order read back and verified. 11:32:36 Lidocaine 1% 20ml vial added to field was administered by Yanet Hubbard RN; used for procedure; Verbal order read back and verified. 11:33:38 TORQUE DEVICE PLASTIC .038 ( TD01) opened to sterile field. 11:33:46 SHEATH 6FR Destination (RSR01) opened to sterile field. 11:43:45 INFLATOR Merit BasixCompak (WE1373) opened to sterile field. 11:43:56 CXI SUPPORT .035 135 CM STR catheter (N19649) opened to sterile field. 11:49:57 SHEATH 6FR [place] (FNA013) opened to sterile field. 11:50:30 SPIDER EMBOLIC PROTECTION DEVICE 5MM ([id number]) opened to sterile field. 11:51:30 Heparin Bolus 5000 units I.V. was administered by Yanet SQUIRES RN; fo r anticoagulation; Verbal order read back and verified. 11:56:41 Hawkone Medium Atherectomy System (H1-M) opened to sterile field. 12:19:45 Inflate balloon Inflation number: 1 A IN.PACT Admiral 5 x 150 x 130 DCB balloon ([id number]) was prepped and advanced across the Mid Superficial Femoral, Left , then inflated to 8 WESLEY for 2:23 (min:sec) . 12:29:04 Nitroglycerin IC/IA 300 mcg I.A. was administered by Alvaro Garcia MD; fo r vasodilation; Verbal order read back and verified. 12:31:22 Inflate balloon Inflation number: 1 A CHOCOLATE 3.0 x 120 x 150 balloon ([id number]) was prepped and advanced across the Undefined1 , then inflated to 14 WESLEY for 2:06 (min:sec) . 12:39:51 Inflate balloon Inflation number: 2 A [place]AN[place]OSS [place] 3.0-2.5X210 ([id number]) was prepped and advanced across the Undefined1 , then inflated to 14 WESLEY for 0:04 (min:sec) . 12:52:47 EXOSEAL 6Fr (EX600) opened to sterile field. 12:58:22 Procedure ended.(Physican Out) 12:58:30 Fluoroscopy time 18.70 minutes. 12:58:34 Fluoroscopy dose: 407 mGy 12:58:34 Flurop Dose total: 407 12:59:17 SEE ANESTHESIA NOTE FOR POST PROCEDURE ANESTHESIA 13:00:09 Contrast amount:Isovue 300 130ml. 13:01:47 Insertion/operative site no bleeding no hematoma. 13:01:50 Post-op/insertion site Right Femoral artery dressed using a 4 x 4 and Tegaderm. 13:01:53 Post right femoral artery:stable 13:03:51 Report given to Recovery Room. 13:04:07 Patient transfered to Recovery Room with Stretcher. Intervention Summary Intervention Notes Time ActionType Lesion and Equipment Used Action# Pressure Duration Attributes 12:19:45 Inflate Mid IN.PACT Admiral 5 1 8 02:23 balloon Superficial x 150 x 130 DCB Femoral, balloon Left ([id number]) 12:31:22 Inflate Undefined1 CHOCOLATE 3.0 x 1 14 02:06 balloon 120 x 150 balloon ([id number]) 12:39:51 Inflate Undefined1 NANOCROSS ELITE 2 14 00:04 balloon 3.0-2.5X210 ([id number]) Device Usage Item Name Manufacture Quantity Catalog Number [facility] Part [facility] rent Minimal Lot# / Charge Number Stock Stock Serial# Code ACIST Syringe Acist 1 40061 653490 239339 985 926 20 (01455) Trendyta ACIST Hand Control Acist 1 84915 426644 674165 986 358 5 (42807) [employer] Inc ACIST Manifold Acist 1 53727 441472 129201 986 374 5 (21417) [employer] Bag Decanter Microtek 1 2001S 169283 40872 984 284 5 (2001S) Medical Inc. Sterile Cardinal 1 [id number] 018374 997 841 5 Angiographic Pack Health Tegaderm 4 x 4 3M 1 1626W 404990 739342 990 033 5 (1626W) TUBING Contrast Merit 1 OVS019R 222000 380027 999 319 5 Injection High Medical Pressure (QHE700E) SHEATH 5FR Terumo 2 PHD110 202063 066025 993 873 5 Montgomery (WVF906) Micropuncture VSI VSI VASCULAR 1 7266V 231498 999 169 5 4FR kit SOLUTIONS DOC .035 wire Cook Medical 1 L33337 642034 999 359 5 (T29260) FIGUEROA 180cm wire [employer] 1 D96777 456791 999 894 5 (F54551) FIGUEROA 260 wire [employer] 1 L23345 292691 09789 999 431 5 (V50414) CHOICE PT Extra [place] 1 [id number] 729666 441560 998 803 5 [id number] Support J 300cm Scientific guide wire ([id number]) GLIDE CATHETER 5FR Terumo 1 CG507 312312 999 601 5 ANGLED 65cm (CG507) GLIDE WIRE ANGLE Terumo 1 TG3792 714752 099325 999 384 5 260cm (LP0053) TORQUE DEVICE [place] 1 TD01 264765 392066 999 196 5 PLASTIC .038 ( Scientific TD01) SHEATH 6FR Terumo 1 RSR01 835397 65601 999 501 5 Destination (RSR01) INFLATOR Merit Merit 1 DD4228 687599 675285 991 863 15 [facility] ([place]3141) CXI SUPPORT .035 [employer] Medical 1 Q70221 790089 741996 999 770 5 135 CM STR catheter (F04737) SHEATH 6FR Terumo 1 PIU611 338156 849693 994 778 40 [place] (KZI247) SPIDER EMBOLIC Medtronic 1 GGE6-KV-990-320 152501 999 964 5 PROTECTION DEVICE 5MM ([id number]) Hawkone Medium Medtronic 1 H1-M 625009 999 10889 5 [id number] Atherectomy System (H1-M) IN.PACT Admiral 5 Medtronic 1 [id number] 696464 4029103 999 964 5 [id number] x 150 x 130 DCB balloon ([id number]) CHOCOLATE 3.0 x Medtronic 1 [id number] 275861 448242 999 994 5 [id number] 120 x 150 balloon OTW [id number] ([id number]) [id number] NANOCROSS ELITE Medtronic 1 [id number] 341078 999 997 1 3.0-2.5X210 ([id number]) EXOSEAL 6Fr Cardinal 1 EX600 288704 777551 995 802 10 [id number] (EX600) Health Signature Audit [place] Stage Time Signature Unsigned Intra-Procedure 04/03/2020 Pranay 1:04:38 PM [place] RT (R) (CV) [facility] [address] [place] [address]
[2020-04-03] MEDS ORDERED: PROBIOTIC1 EAC1 PO (09:01)
[2020-04-03] MEDS ORDERED: NIACIN100 MG PO (09:01)
[2020-04-03 09:06] LABS: ANION GAP 10.6 mmol/L (8-16); CALCIUM 9.3 mg/dL (8.5-10.1); CARBON DIOXIDE 26.7 mmol/L (21.0-32.0); CREATININE - SERUM 1.1 mg/dL (0.6-1.3); POTASSIUM - SERUM 4.3 mmol/L (3.5-5.1)
[2020-04-03 09:08] LABS: APTT 29.1 SECONDS (22.8-39.4); INR 0.97 (0.85-1.17); PROTIME 12.9 SECONDS (11.6-15.0)
[2020-04-03 09:14] LABS: HEMOGLOBIN 12.6 g/dL (13.5-17.5); MCH 32.5 pg (26.0-34.0); MCV 92.8 fL (80.0-100.0); MEAN PLATELET VOLUME 9.8 fL (7.4-10.4); PLATELET COUNT 126 10x3/uL (130-400); RBC 3.88 10x6/uL (4.20-6.10); RDW 12.7 % (11.5-14.5); WBC 11.2 10x3/uL (4.8-10.8)
[2020-04-03 09:21] VITALS: BP 129/72; Ht 182.9 cm; Wt 85.5 kg
[2020-04-03 10:40] LABS: BASOPHILS 1 % (0-2); EOSINOPHILS 4 % (0-7); LYMPHOCYTES 41 % (15-50); MONOCYTES 4 % (2-11); NEUTROPHILS 48 % (40-80); PLATELET ESTIMATE NORMAL; ROULEAUX OCC
--- NOTE | 2020-04-03 13:25 | NUR ---
1324 OPA DISCONTINUED. PATIENT AWAKE AND MAINTAINING PATENT AIRWAY
--- NOTE | 2020-04-03 14:45 | NUR ---
8051 SEE POST VITAL SIGN SHEET FOR VITAL SIGN TRENDS. CALL LIGHT AT BEDSIDE
--- NOTE | 2020-04-03 15:42 | NUR ---
1540 DR. MICHEL ROUNDS. PT. SITTING UP IN BED WHEN ENTERED ROOM ON PHONE. GROIN SITE CDI, NO HEMATOMA, FOOT PULSE PRESENT. DR. MICHEL STATES DC TIME COULD BE 1600. PT TO LAY WITH RIGHT LEG STRAIGHT FOR ANOTHER 20 MINUTES. PT. LAYS BACK
--- NOTE | 2020-04-03 16:29 | NUR ---
2496 ASHANTI IRWIN RN ROUNDS ON PT. GIVING DC INSTS. DC INSTS GIVEN, VOICED UNDERSTANDING. ASSISSTED DRESSING. GROIN SITE CDI NO HEMATOMA. VOIDS 400CC YELLOW URINE. RELEASED IN WC HAS FLETCHER CAMPO.
== END 2020-04-03 16:20 | disposition home or self-care (01) ==
LOC: D.SP 07:47 → D.RAD 10:00 → D.SP 16:20
PROVIDERS: ATTEND General Practice
DX: I70.202 Unspecified atherosclerosis of native arteries of extremities, left leg (principal); I10 Essential (primary) hypertension; K21.9 Gastro-esophageal reflux disease without esophagitis; Z72.0 Tobacco use

== ENCOUNTER 2020-05-01 07:04 | Outpatient (CLI) | payer MEDICAID ==
[~2020-05-01] VITALS: Ht 182.9 cm; Wt 85.9 kg
--- NOTE | ~2020-05-01 | HEMODYNAMI ---
PATIENT:DONNIE AQUINO HUMBOLDT MEDICAL RECORD: [id number] : 63 LOCATION:[facility] ADMISSION DATE: 05/01/20 Generatedon:05/01/202013:37 Patient name: DONNIE AQUINO Patient #: [id number] SSN: : 1965 Date of study: 05/01/2020 Page: Of Hemodynamic Procedure Report Patient Data Patient Demographics Procedure consent was obtained First Name: DONNIE Gender: Male Last Name: KENIA : 1965 [facility] Initial: HUMBOLDT Age: 54 year(s) Patient #: [id number] Race: Unknown Additional ID: [id number] Contact details Address: [address] State: [place] City: [place] Zip code: [address] Past Medical History Allergies: No known allergies Admission Admission Data Admission Date: 05/01/2020 Admission Time: 7:04 Procedure Procedure Types Cath Procedure Peripheral Cath Diagnostic Procedure Abd/Extremity Extremities Bilat Lower Extremity Procedure Description Procedure Date Procedure Date: 05/01/2020 Procedure Start Time: 11:20 Procedure Staff Name Function Alvaro Garcia MD Performing Physician Nino Murcia CRYSTAL MACHINING COORDINATOR Additional personnel BENEDICT ART RT Monitor Pranay Flores RT Scrub Yanet SQUIRES RN Nurse Procedure Data Cath Procedure Fluoroscopy Diagnostic fluoroscopy Total fluoroscopy dose: 421 dose: 421 mGy mGy Contrast Material Contrast Material Type Amount (ml) Isovue 300 160 Procedure Medications Medication Administration Route Dosage Lidocaine 1% added to field 20 Heparin Flush Bag added to field 2 bags (1000units/500ml NS) Heparin Flush Bag added to field 2 bags (1000units/500ml NS) Heparin Bolus I.V. 5000 units Refer to Anesthesia Notes for Sedation Medications Heparin Bolus I.V. 2000 units Nitroglycerin IC/IA I.A. mcg Hemodynamics Rest Heart Rate: 61 (bpm) Snapshots Pre Cath Intra NCS Post Cath Vital Signs Time Heart Resp SPO2 etCO2 NIBP (mmHg) Rhythm Pain Sedation Rate (ipm) (%) (mmHg) Status Level (bpm) 11:07:04 62 18 100 13.4 158/76(100) NSR 0 (11) 10(A) , No pain 11:11:24 60 16 100 11.9 127/69(97) NSR 0 (11) 10(A) , No pain 11:15:38 62 16 100 32.2 119/73(99) NSR 0 (11) 10(A) , No pain 11:19:48 67 15 100 36.7 133/72(99) NSR 0 (11) 10(A) , No pain 11:24:00 78 13 99 42.7 133/82(109) NSR 0 (11) 10(A) , No pain 11:28:12 85 12 96 39.7 147/84(111) NSR 0 (11) 10(A) , No pain 11:32:32 87 13 98 50.9 143/75(101) NSR 0 (11) 10(A) , No pain 11:36:46 90 12 98 53.2 143/75(101) NSR 0 (11) 10(A) , No pain 11:41:06 91 13 99 50.2 136/72(106) NSR 0 (11) 10(A) , No pain 11:45:20 81 13 100 41.2 119/66(92) NSR 0 (11) 10(A) , No pain 11:49:32 77 14 100 41.2 110/65(89) NSR 0 (11) 10(A) , No pain 11:53:39 78 14 100 40.5 117/70(100) NSR 0 (11) 10(A) , No pain 11:57:49 78 14 100 39.7 122/68(91) NSR 0 (11) 10(A) , No pain 12:02:01 76 14 100 38.9 135/72(108) NSR 0 (11) 10(A) , No pain 12:06:17 75 14 100 39.7 133/71(101) NSR 0 (11) 10(A) , No pain 12:10:33 73 13 100 43.4 134/72(87) NSR 0 (11) 10(A) , No pain 12:14:50 75 13 100 41.9 118/73(87) NSR 0 (11) 10(A) , No pain 12:18:58 79 12 99 44.2 132/75(101) NSR 0 (11) 10(A) , No pain 12:23:09 81 12 99 46.5 136/80(109) NSR 0 (11) 10(A) , No pain 12:27:23 83 11 99 47.2 142/78(97) NSR 0 (11) 10(A) , No pain 12:31:43 84 11 99 48.7 135/69(99) NSR 0 (11) 10(A) , No pain 12:35:55 88 11 98 51 131/79(97) NSR 0 (11) 10(A) , No pain 12:40:09 88 11 98 50.2 134/73(100) NSR 0 (11) 10(A) , No pain 12:44:21 89 11 98 51.7 134/68(99) NSR 0 (11) 10(A) , No pain 12:48:35 89 11 98 51.7 135/76(107) NSR 0 (11) 10(A) , No pain 12:52:49 90 10 98 51.7 133/73(107) NSR 0 (11) 10(A) , No pain 12:57:03 88 11 98 48.7 139/76(106) NSR 0 (11) 10(A) , No pain 13:01:21 86 12 99 47.2 132/69(97) NSR 0 (11) 10(A) , No pain 13:05:31 85 11 99 45.7 129/75(92) NSR 0 (11) 10(A) , No pain 13:09:45 84 11 99 44.9 130/68(98) NSR 0 (11) 10(A) , No pain 13:13:57 85 16 98 36.7 135/71(93) NSR 0 (11) 10(A) , No pain 13:18:09 82 13 100 35.9 133/68(97) NSR 0 (11) 10(A) , No pain 13:22:25 80 13 100 38.9 129/69(93) NSR 0 (11) 10(A) , No pain 13:26:39 79 12 99 37.4 137/72(99) NSR 0 (11) 10(A) , No pain 13:30:51 79 12 100 35.9 145/85(104) NSR 0 (11) 10(A) , No pain 13:35:07 78 20 0 129/70(89) NSR 0 (11) 10(A) , No pain Medications Time Medication Route Dose Verified Delivered Reason Notes Effectiveness by by 11:33:17 Heparin Flush added 2 Alvaro John used for Bag to bags Jose Garcia MD procedure (1000units/500ml field NS) 11:33:17 Lidocaine 1% added 20ml Alvaro John for local to vial Jose Garcia MD anesthetic field MD 11:33:44 Heparin Flush added 2 Alvaro John used for TIVA Bag to bags Jose Garcia MD procedure Sedation (1000units/500ml field provided NS) by Nino CHRISTOPHER 11:53:00 Heparin Bolus I.V. 5000 Alvaro Holt Per units SHAW Garcia physician RN 11:53:23 Refer to Alvaro Holt Anesthesia Notes SHAW Garcia for Sedation RN Medications 12:44:30 Heparin Bolus I.V. 2000 Alvaro Holt Per units SHAW Garcia MD RN 13:09:57 Nitroglycerin I.A. mcg Alvaro John for IC/IA Jose Garcia MD vasodilation MD Procedure Log Time Note 11:33:17 Lidocaine 1% 20ml vial added to field was administered by Alvaro Garcia MD; for local anesthetic; Verbal order read back and verified. 11:33:17 Heparin Flush Bag (1000units/500ml NS) 2 bags added to field was administered by Alvaro Garcia MD; used for procedure; Verbal order read back and verified. 11:33:44 Heparin Flush Bag (1000units/500ml NS) 2 bags added to field was administered by Alvaro Garcia MD; used for procedure; TIVA Sedation provided by Nino CHRISTOPHER Verbal order read back and verified. 10:45:54 Tegaderm 4 x 4 (1626W) opened to sterile field. 10:54:18 Yanet SQUIRES RN sent for patient. Start room use. 10:54:24 Nino Murcia CRNA present and monitoring patient for TIVA. 10:54:44 Plan of Care:Hemodynamics will remain stable., Cardiac rhythm will remain stable., Comfort level will be maintained., Respiratory function will remain adequate., Patient/ family verbilizes understanding of procedure., Procedure tolerated without complication., Recovers from procedure without complications.. 10:54:50 Patient received from Outpatients to IR Alert and oriented. Tansferred to table in Supine position. 10:54:52 Signed procedure consent form obtained from patient. 10:54:55 Correct patient and procedure confirmed by team. 10:54:58 Full Disclosure recording started 10:55:00 - 10:55:25 SEE ANESTHESIA NOTE FOR PRE PROCEDURE ANESTHESIA 10:55:28 Pre-procedure instructions explained to patient. 10:55:29 Pre-op teaching completed and patient verbalized understanding. 10:55:36 ACIST Hand Control (89989) opened to sterile field. 10:55:36 ACIST Manifold (34341) opened to sterile field. 10:55:36 Bag Decanter (2002S) opened to sterile field. 10:55:37 Sterile Angiographic Pack opened to sterile field. 10:55:37 Tegaderm 4 x 4 (1626W) opened to sterile field. 11:01:45 Pre procedure: right dorsailis pedis pulse Doppler 11:01:48 Pre procedure: left dorsailis pedis pulse Doppler 11:01:52 Pre procedure: right posterior tibial pulse Doppler 11:01:55 Pre procedure: left posterior tibial pulse Doppler 11:02:04 Left groin area was prepped with chlora-prep and draped in sterile fashion 11:05:50 ECG and BP/O2 sat monitors applied to patient. 11:05:50 Vital chart was started 11:12:18 Baseline sample Acquired. 11:17:06 2) 60-89 Mildly reduced kidney function, and other findings (as for stage 1) point to kidney disease. 11:17:34 Maximum allowable contrast dose (3.7 X eGFR X 0.75)205.35 ml. 11:20:04 Physician arrived 11:20:05 --------ALL STOP TIME OUT------ 11:20:05 Final Timeout: patient, procedure, and site verified with staff and physician. All members of the team are in agreement. 11:20:08 Left groin site verified by team. 11:20:12 Fire Safety Assessment: A--An alcohol-based skin anteseptic being used preoperatively., C--Open oxygen or nitrous oxide is being used. 11:20:18 Sedation plan: TIVA Medication:Propofol 11:20:27 Procedure started. 11:20:36 Local anesthetic to left femerol artery with Lidocaine 1% by Alvaro Garcia MD.INITIAL ACCESS ONLY 11:20:46 DOC .035 wire (W69596) opened to sterile field. 11:20:46 Micropuncture VSI 4FR kit opened to sterile field. 11:20:47 SHEATH 5FR Hooks (CWG518) opened to sterile field. 11:20:47 FIGUEROA 260 wire (E04452) opened to sterile field. 11:20:47 TUBING Contrast Injection High Pressure (DWY403I) opened to sterile field. 11:20:47 GLIDE WIRE ANGLE 260cm (TF8899) opened to sterile field. 11:20:48 CHOICE PT Extra Support J 300cm guide wire ([id number]) opened to steril e field. 11:35:27 GLIDE CATHETER 5FR ANGLED 65cm (CG507) opened to sterile field. 11:43:18 SHEATH 6FR Destination (RSR01) opened to sterile field. 11:48:22 CXI SUPPORT .035 135 CM STR catheter (L84802) opened to sterile field. 11:48:22 INFLATOR BasixTOUCH (PD9626) opened to sterile field. 11:48:59 COOK SHEATH 6FR RAABE 70CM (Y18533) opened to sterile field. 11:53:00 Heparin Bolus 5000 units I.V. was administered by Yanet SQUIRES RN; Pe r physician; Verbal order read back and verified. 11:53:23 Refer to Anesthesia Notes for Sedation Medications was administered by Yanet SQUIRES RN; ; Verbal order read back and verified. 11:54:50 GLIDE CATHETER 5FR ANGLED 100cm (CG508) opened to sterile field. 12:13:23 Sparkcentral Medium Atherectomy System (H1-M) opened to sterile field. 12:28:40 Inflate balloon Inflation number: 1 A IN.PACT Admiral 5 x 150 x 130 DCB balloon ([id number]) was prepped and advanced across the Undefined1 , then inflated to 7 WESLEY for 0:31 (min:sec) . 12:44:30 Heparin Bolus 2000 units I.V. was administered by Yanet SQUIRES RN; Pe r physician; Verbal order read back and verified. 12:49:43 ROADRUNNER .035 260 glide wire (Z11940) opened to sterile field. 12:49:43 GUIDEWIRE V-18 CONTROL ([id number]) opened to sterile field. 12:50:28 Trailblazer 0.035 135cm catheter ([id number]) opened to sterile field. 13:03:07 Inflate balloon Inflation number: 2 A CHOCOLATE 2.5 x 120 x 150 balloon ([id number]) was prepped and advanced across the Undefined1 , then inflated to 9 WESLEY for 3:48 (min:sec) . 13:09:57 Nitroglycerin IC/IA mcg I.A. was administered by Alvaro Garcia MD; for vasodilation; Verbal order read back and verified. 13:09:58 Inflate balloon Inflation number: 3 A NANOCROSS ELITE .014 3.5MM-3MM X 210 X 150 ([id number]) was prepped and advanced across the Undefined1 , then inflated to 8 WESLEY for 3:43 (min:sec) . 13:13:43 Inflate balloon Inflation number: 4 A NANOCROSS ELITE 3.0-2.5X210 ([id number]) was prepped and advanced across the Undefined1 , then inflated to 8 WESLEY for 1:01 (min:sec) . 13:22:35 SHEATH 6FR Hooks (CBS167) opened to sterile field. 13:27:59 Procedure ended.(Physican Out) 13:31:34 Fluoroscopy dose: 421 mGy 13:31:34 Flurop Dose total: 421 13:31:41 Contrast amount:Isovue 300 160ml. 13:31:47 Sharps counted by scrub and verified by R.N. 13:32:28 SEE ANESTHESIA NOTE FOR POST PROCEDURE ANESTHESIA 13:36:54 Post-op/insertion site Left Femoral artery dressed using a 4 x 4 and Tegaderm. 13:36:59 Post left femerol artery:stable 13:37:04 Report given to Outpatients. 13:37:07 Patient transfered to Outpatients with Stretcher. 13:37:41 Vital chart was stopped Intervention Summary Intervention Notes Time ActionType Lesion and Equipment Used Action# Pressure Duration Attributes 12:28:40 Inflate Undefined1 IN.PACT Admiral 5 1 7 00:31 balloon x 150 x 130 DCB balloon ([id number]) 13:03:07 Inflate Undefined1 CHOCOLATE 2.5 x 2 9 03:48 balloon 120 x 150 balloon ([id number]) 13:09:58 Inflate Undefined1 NANOCROSS ELITE 3 8 03:43 balloon .014 3.5MM-3MM X 210 X 150 ([id number]) 13:13:43 Inflate Undefined1 NANOCROSS ELITE 4 8 01:01 balloon 3.0-2.5X210 ([id number]) Device Usage Item Name Manufacture Quantity Catalog Number [facility] nt Minimal Lot# / Charge Number Stock Stock Serial# Code Tegaderm 4 x 4 3M 2 1626W [id number] [id number] 26635 9 5 (1626W) ACIST Hand Acist 1 98265 020881 958241 61077 2 5 Control (29173) [employer] ACIST Manifold Acist 1 80847 515072 988874 48420 8 5 (30674) [employer] Bag Decanter Microtek 1 2001S 406671 78948 49122 7 5 (2001S) Medical Inc. Sterile Cardinal 1 [id number] 081277 04393 [address] [facility] DOC .035 wire Cook Medical 1 Y99852 061262 56049 4 5 (D16219) Micropuncture VSI VSI VASCULAR 1 7266V 439485 08492 4 5 4FR kit SOLUTIONS SHEATH 5FR Terumo 1 ZUT673 133970 347955 50903 4 5 Hooks (BVP820) FIGUEROA 260 wire [employer] 1 Q02412 311405 05500 70949 5 5 (R11936) TUBING Contrast Merit 1 QPL947Q 082209 880347 01474 9 5 Injection High Medical Pressure (LJL744F) GLIDE WIRE ANGLE Terumo 1 KU0259 740328 020596 60797 9 5 260cm (DC8366) CHOICE PT Extra [employer] 1 [id number] 01321020190419 61728 1 5 [id number] Support J 300cm Scientific guide wire (0759650D4) GLIDE CATHETER Terumo 1 CG507 052656 21808 3 5 5FR ANGLED 65cm (CG507) SHEATH 6FR Terumo 1 RSR01 341038 83704 20526 4 5 Destination (RSR01) CXI SUPPORT .035 [employer] 1 S67699 472897 170944 98811 0 5 [id number] 135 CM STR catheter (X62047) INFLATOR Merit 1 XB1216 495237 363479 65902 4 5 [employer] (DV5556) COOK SHEATH 6FR [employer] 1 Z10817 925501 30589 14514 1 1 RAABE 70CM (P82708) GLIDE CATHETER Terumo 1 CG508 329510 98733 91301 4 4 5FR ANGLED 100cm (CG508) Hawkone Medium Medtronic 1 H1-M 015648 04597 947 5 [id number] Atherectomy System (H1-M) IN.PACT Admiral 5 Medtronic 1 [id number] 170773 2521527 38365 3 5 x 150 x 130 DCB balloon ([id number]) ROADRUNNER .035 [employer] 1 H09642 537419 544272 20443 4 5 [id number] 260 glide wire (G62493) GUIDEWIRE V-18 New Deal 1 342384 561016 94281 6 1 [id number] CONTROL Scientific ([id number]) Trailblazer 0.035 Medtronic 1 ASC-035-135 320506 80195 85695 8 5 135cm catheter (LLW354105) CHOCOLATE 2.5 x Medtronic 1 [id number] 165632 788268 09417 1 5 120 x 150 balloon O ([id number]) TW NANOCROSS ELITE Medtronic 1 [id number] 500870 68727 95 1 .014 3.5MM-3.MM X 210 X 150 ([id number] NANOCROSS ELITE Medtronic 1 [id number] 497713 58465 5 1 3.0-2.5X210 ([id number]) SHEATH 6FR Terumo 1 YQY265 596208 875464 75461 1 40 Hooks (EON103) Signature Audit Landing Stage Time Signature Unsigned Intra-Procedure 05/01/2020 Pranay 1:37:36 PM [place] RT (R) (CV) [facility] [address] [id number]
[~2020-05-01 07:04] MED LIST changes: +NIACIN100 MG PO; +PROBIOTIC1 EAC1 PO
[2020-05-01 07:19] LABS: HEMATOCRIT 34.9 % (42.0-54.0); HEMOGLOBIN 12.8 g/dL (13.5-17.5); MCH 32.6 pg (26.0-34.0); MCHC 36.7 g/dL (31.0-37.0); MCV 88.8 fL (80.0-100.0); MEAN PLATELET VOLUME 9.2 fL (7.4-10.4); PLATELET COUNT 150 10x3/uL (130-400); RBC 3.93 10x6/uL (4.20-6.10); RDW 12.2 % (11.5-14.5); WBC 10.5 10x3/uL (4.8-10.8)
[2020-05-01 07:31] LABS: ANION GAP 12.1 mmol/L (8-16); CALCIUM 8.7 mg/dL (8.5-10.1); CARBON DIOXIDE 24.1 mmol/L (21.0-32.0); CREATININE - SERUM 1.1 mg/dL (0.6-1.3); POTASSIUM - SERUM 4.2 mmol/L (3.5-5.1)
[2020-05-01 07:33] LABS: APTT 29.2 SECONDS (22.8-39.4); INR 0.95 (0.85-1.17); PROTIME 12.7 SECONDS (11.6-15.0)
[2020-05-01 07:49] VITALS: Ht 182.9 cm; Wt 85.9 kg
[2020-05-01 11:49] LABS: EOSINOPHILS 2 % (0-7); LYMPHOCYTES 57 % (15-50); MONOCYTES 6 % (2-11); NEUTROPHILS 35 % (40-80); PLATELET ESTIMATE NORMAL
--- NOTE | 2020-05-01 15:58 | NUR ---
PATIENT AMBULATES AROUND ROOM WITH STAND-BY ASSIST. NO CHANGE IN LEFT GROIN ASSESSMENT WITH AMBULATION. LEFT AC PIV DC'D WITH TIP INTACT. PATIENT DRESSING IN PERSONAL CLOTHING
== END 2020-05-01 16:10 | disposition home or self-care (01) ==
LOC: D.SP 07:04 → D.RAD 10:00 → D.SP 10:00
PROVIDERS: ATTEND General Practice
DX: I70.211 Atherosclerosis of native arteries of extremities with intermittent claudication, right leg (principal); T81.89XA Other complications of procedures, not elsewhere classified, initial encounter; I10 Essential (primary) hypertension; K21.9 Gastro-esophageal reflux disease without esophagitis; Z72.0 Tobacco use

== ENCOUNTER → 2020-05-25 10:28 | Outpatient (CLI) | payer MEDICAID ==
[2020-05-01 07:49] VITALS: BMI 25.7
== END | disposition home or self-care (01) ==
LOC: D.CT 10:28
PROVIDERS: ATTEND General Practice
DX: I70.213 Atherosclerosis of native arteries of extremities with intermittent claudication, bilateral legs (principal); M79.605 Pain in left leg

== ENCOUNTER → 2020-12-24 13:34 | Outpatient (CLI) | payer MEDICAID ==
[2020-11-15 12:12] VITALS: BMI 27.8
[~2020-12-24 13:34] MED LIST changes: +CBD OIL; +CLOTRIMAZOLE-BE30 ML; +CQ10; +DECADRON4 MG PO; +ELAVIL25 MG PO; +LIPITOR80 MG PO; +LISINOPRIL5 MG PO; +LYRICA100 MG PO; +NEURONTIN800 MG PO; +TERBINAFINE HC250 MG PO; +VIT B COMPLEX; +VITAMIN A10000 UNIT PO; +VITAMIN D3 PO; +WELLBUTRIN XL150 M1 PO; +ZINC
== END | disposition home or self-care (01) ==
LOC: D.CT 12-20 13:00
PROVIDERS: ATTEND General Practice
DX: M79.605 Pain in left leg (principal); I70.201 Unspecified atherosclerosis of native arteries of extremities, right leg; I70.202 Unspecified atherosclerosis of native arteries of extremities, left leg

== ENCOUNTER 2021-01-25 10:21 | Day surgery (SDC) | payer MEDICAID ==
--- NOTE | 2021-01-24 08:01 | NUR ---
CONFIRMED ANESTHESIA WITH NEGRITA
[~2021-01-25] VITALS: Ht 182.9 cm; Wt 90.9 kg
--- NOTE | ~2021-01-25 | HEMODYNAMI ---
PATIENT:DONNIE AQUINO [place] MEDICAL RECORD: [id number] : 63 [id number] ADMISSION DATE: 01/25/21 Generatedon:115:18 Patient name: DONNIE AQUINO Patient #: [id number] SSN: : 1965 Date of study: 01/25/2021 Page: Of Hemodynamic Procedure Report Patient Data Patient Demographics Procedure consent was obtained First Name: DONNIE Gender: Male Last Name: KENIA : 1965 Middle Initial: [place] Age: 55 year(s) Patient #: [id number] Race: Unknown Additional ID: [id number] Contact details Address: [facility] [address] State: [place] City: [place] Zip code: [address] Past Medical History Allergies: No known allergies Admission Admission Data Admission Date: 01/25/2021 Admission Time: 10:21 Procedure Procedure Types Cath Procedure Peripheral Cath Diagnostic Procedure Abd/Extremity Extremities Bilat Lower Extremity Procedure Description Procedure Date Procedure Date: 01/25/2021 Procedure Start Time: 13:32 Procedure End Time: 15:18 Procedure Staff Name Function Alvaro Garcia MD Performing Physician BENEDICT ART RT Monitor Griselda Allen RN Nurse Jessy Easley RN Nurse Pranay Flores RT Scrub Cesar Hargrove MD Additional personnel Procedure Data Cath Procedure Fluoroscopy Diagnostic fluoroscopy Total fluoroscopy Time: time: 12.3 min 12.3 min Contrast Material Contrast Material Type Amount (ml) Isovue 300 200 Entry Location Entry Primary Successful Side Size Upsize 1 Upsize Entry Closure Velasquez ccessful Closure Location (Fr) (Fr) 2 (Fr) Remarks Device Remarks Femoral Right 5 Fr 6 Fr 6 Fr Exoseal artery Mid-Length Short Diagnostic catheters Device Type Used For End Catheter Placement Angiodynamics SOS OMNI 2 Coronary NON B 5FR 65CM catheter Angiography ([id number]) Procedure Medications Medication Administration Route Dosage Lidocaine 1% added to field 20 Heparin Flush Bag added to field 3 bags (1000units/500ml NS) Heparin Bolus I.V. 6000 units Heparin Bolus I.V. 1000 units Nitroglycerin IC/IA I.A. 300 mcg Nitroglycerin IC/IA I.A. 300 mcg Hemodynamics Rest Pre Cath Intra NCS Post Cath Medications Time Medication Route Dose Verified Delivered Reason Notes Effec tiveness by by 13:12:10 Lidocaine 1% added 20ml Alvaro John used for to vial Jose Garcia MD procedure field 13:12:25 Heparin Flush added 3 Alvaro John used for Bag to bags Jose Garcia MD procedure (1000units/500ml field NS) 13:49:57 Heparin Bolus I.V. 6000 Alvaro John used for units Jose Garcia MD procedure 14:31:43 Heparin Bolus I.V. 1000 Alvaro John used for units Jose Garcia MD procedure 14:43:34 Nitroglycerin I.A. 300 Alvaro John used for IC/IA mcg Jose Garcia MD procedure 14:53:11 Nitroglycerin I.A. 300 Alvaro John used for IC/IA mcg Jose Garcia MD procedure Procedure Log Time Note 12:45:10 Use device set IR Diagnostic 12:45:11 ACIST Syringe (11040) opened to sterile field. 12:45:11 ACIST Hand Control (22934) opened to sterile field. 12:45:12 ACIST Manifold (27732) opened to sterile field. 12:45:12 Bag Decanter (2002S) opened to sterile field. 12:45:13 Sterile Angiographic Pack opened to sterile field. 12:45:14 Tegaderm 4 x 4 (1626W) opened to sterile field. 12:46:05 GLIDE WIRE ANGLE 260cm (GK6072) opened to sterile field. 12:46:06 FIGUEROA 260 wire (N13948) opened to sterile field. 12:46:07 GLIDE CATHETER 5FR ANGLED 65cm (CG507) opened to sterile field. 12:46:07 DOC Extension wire (03162) opened to sterile field. 12:56:12 Jessy Easley RN sent for patient. Start room use. 12:56:13 Time tracking: Regular hours (M-F 7:00 - 5:00) 12:56:21 Plan of Care:Hemodynamics will remain stable., Cardiac rhythm will remain stable., Comfort level will be maintained., Respiratory function will remain adequate., Patient/ family verbilizes understanding of procedure., Procedure tolerated without complication., Recovers from procedure without complications.. 12:56:29 Patient received from Outpatients to IR Alert and oriented. Tansferred to table in Supine position. 12:56:30 Signed procedure consent form obtained from patient. 12:56:32 Warm blankets applied, and troy hugger turned on for patient comfort. 12:56:32 Correct patient and procedure confirmed by team. 12:56:32 ECG and BP/O2 sat monitors applied to patient. 12:56:37 Cesar Hargrove MD present and monitoring patient for TIVA. 12:57:12 H&P Date Dictated: 01/25/2021 H&P Addendum completed by physician on day of procedure. (MUST COMPLETE FOR ALL OUTPATIENTS). 12:57:14 Pre-procedure instructions explained to patient. 12:57:15 Pre-op teaching completed and patient verbalized understanding. 12:57:18 Patient NPO since Midnight. 12:57:24 Patient allergic to No known allergies 12:57:26 Is the patient allergic to Iodine/contrast media? No. 12:57:28 Was the patient premedicated? No 12:58:21 Is patient on blood thinner?Yes 12:58:29 ACC The patient was administered the following blood thiners within the last 24 hours: ACCPlavix 12:58:31 Patient diabetic? Yes. 12:58:32 If diabetic: On Metformin? Yes 12:58:33 - 12:58:34 ----see anethesia note for Pre-sedation anethesia assessment.---- 12:59:22 IV patent on arrival in left hand with 0.9% NaCl at KVO. 12:59:30 Right groin area was prepped with chlora-prep and draped in sterile fashion 12:59:31 Alarms reviewed by R. N. 12:59:31 Sharps counted by scrub and verified by Julio 12:59:32 - 13:12:10 Lidocaine 1% 20ml vial added to field was administered by Alvaro Garcia MD; used for procedure; Verbal order read back and verified. 13:12:25 Heparin Flush Bag (1000units/500ml NS) 3 bags added to field was administered by Alvaro Garcia MD; used for procedure; Verbal order read back and verified. 13:14:04 A AngiodynamHenable SOS OMNI 2 NON B 5FR 65CM catheter ([id number]) was opene d to sterile field. 13:24:39 Physician arrived 13:24:39 --------ALL STOP TIME OUT------ 13:24:40 Final Timeout: patient, procedure, and site verified with staff and physician. All members of the team are in agreement. 13:24:42 Right groin site verified by team. 13:24:45 Fire Safety Assessment: A--An alcohol-based skin anteseptic being used preoperatively., C--Open oxygen or nitrous oxide is being used. 13:24:52 2) 60-89 Mildly reduced kidney function, and other findings (as for stage 1) point to kidney disease. 13:25:10 Maximum allowable contrast dose (3.7 X eGFR X 0.75)227.55 ml. 13:25:18 Sedation plan: General Anesthesia Medication:General Anesthesia 13:25:39 Procedure started. 13:25:40 Full Disclosure recording started 13:32:39 SHEATH 5FR Hopkins (JTS084) opened to sterile field. 13:32:39 AMPLATZ Super Stiff 75cm wire ([id number]) opened to sterile field. 13:32:53 Local anesthetic to right femoral artery with Lidocaine 1% by Alvaro Garcia MD.INITIAL ACCESS ONLY 13:34:05 Local anesthetic to right femoral artery with Lidocaine 1% by Alvaro Garcia MD.INITIAL ACCESS ONLY 13:34:06 Access obtained with 4Fr micropunture. 13:35:02 A 5 Fr sheath was inserted into the Right Femoral artery 13:35:10 TORQUE DEVICE PLASTIC .038 ( TD01) opened to sterile field. 13:44:34 SHEATH DESTINATION 6FR X 65CM (RSP01) opened to sterile field. 13:44:53 Sheath upsized to a 6 Fr Mid-Length. 13:47:10 CHOICE PT Extra Support J 300cm guide wire ([id number]) opened to steril e field. 13:47:19 INFLATOR BasixTOUCH (AT3997) opened to sterile field. 13:48:33 CXI SUPPORT .035 135 CM STR catheter (D31015) opened to sterile field. 13:49:57 Heparin Bolus 6000 units I.V. was administered by Alvaro Garcia MD; used for procedure; Verbal order read back and verified. 13:54:46 Inflate balloon Inflation number: 1 A SHOCKWAVE BALLOON 5.5 X 60 ([id number]) was prepped and advanced across the Distal Common Femoral, Left -1, then inflated to 0 WESLEY for 0:00 (min:sec) -1. 14:13:30 Inflation number: 2 The SHOCKWAVE BALLOON 5.5 X 60 ([id number]) wa s reinflated across the Distal Common Femoral, Left. 14:14:20 Inflation number: 3 The SHOCKWAVE BALLOON 5.5 X 60 ([id number]) wa s reinflated across the Distal Common Femoral, Left. 14:14:25 Inflation number: 4 The SHOCKWAVE BALLOON 5.5 X 60 ([id number]) wa s reinflated across the Distal Common Femoral, Left. 14:14:29 Inflation number: 5 The SHOCKWAVE BALLOON 5.5 X 60 ([id number]) wa s reinflated across the Distal Common Femoral, Left . 14:21:46 Inflation number: 1 The CHOCOLATE 3.0 x 80 x 150 balloon ([id number]) was reinflated across the Mid Posterior Tibial, Left -1, to 0 WESLEY for 0:00 (min:sec) -1. 14:24:34 Inflate balloon Inflation number: 2 A CHOCOLATE 3.5 x 80 x 135 balloon ([id number]) was prepped and advanced across the Mid Posterior Tibial, Left -1, then inflated to 0 WESLEY for 0:00 (min:sec) -1. 14:31:43 Heparin Bolus 1000 units I.V. was administered by Alvaro Garcia MD; used for procedure; Verbal order read back and verified. 14:32:35 Inflate balloon Inflation number: 3 A CHOCOLATE 3.0 x 120 x 150 balloon ([id number]) was prepped and advanced across the Mid Posterior Tibial, Left . 14:43:34 Nitroglycerin IC/IA 300 mcg I.A. was administered by Alvaro Garcia MD; used for procedure; Verbal order read back and verified. 14:48:10 Inflate balloon Inflation number: 1 A [place]OSS ELITE 3.0-2.5X210 ([id number]) was prepped and advanced across the Mid Anterior Tibial, Left , then inflated. 14:50:12 Inflation number: 2 The NANOCROSS ELITE 3.0-2.5X210 ([id number]) wa s reinflated across the Mid Anterior Tibial, Left. 14:53:11 Nitroglycerin IC/IA 300 mcg I.A. was administered by Alvaro Garcia MD; used for procedure; Verbal order read back and verified. 14:53:21 Inflate balloon Inflation number: 3 A [place]ITE 2.5MM-2 MM X 210 X 150 ([id number]) was prepped and advanced across the Mid Anterior Tibial, Left , then inflated. 15:02:25 SHEATH 6FR Hopkins (JMW466) opened to sterile field. 15:06:53 EXOSEAL 6Fr (EX600) opened to sterile field. 15:07:08 Sheath upsized to a 6 Fr Short. 15:07:08 Sheath removed intact; hemostasis achieved with Exoseal to the Right Femoral artery. 15:08:29 Procedure ended.(Physican Out) 15:08:54 Fluoroscopy time 12.30 minutes. 15:08:58 Dose Area Product 363 mGy/cm. 15:09:01 Contrast amount:Isovue 300 200ml. 15:09:18 Maximum allowable dose exceeded? No. 15:09:20 Sharps counted by scrub and verified by R.N. 15:09:33 Post-op/insertion site Right Femoral artery dressed using a 4 x 4 and Tegaderm. 15:09:37 Post procedure instruction explained to patient.Patient verbalizes understanding. 15:09:38 Procedure and supply charges have been captured, reviewed, submitted an d are correct. 15:18:21 Procedure ended. 15:18:21 Full Disclosure recording stopped 15:18:25 See physician's report for complete and final results. 15:18:27 End room use (Document Last) Intervention Summary Intervention Notes Time ActionType Lesion and Equipment Used Action# Pressure Duration Attributes 13:54:46 Inflate Distal SHOCKWAVE BALLOON 1 0 00:00 balloon Common 5.5 X 60 Femoral, ([id number]) Left 14:13:30 Reinflate Distal SHOCKWAVE BALLOON 2 0 00:00 balloon Common 5.5 X 60 Femoral, ([id number]) Left 14:14:20 Reinflate Distal SHOCKWAVE BALLOON 3 0 00:00 balloon Common 5.5 X 60 Femoral, ([id number]) Left 14:14:25 Reinflate Distal SHOCKWAVE BALLOON 4 0 00:00 balloon Common 5.5 X 60 Femoral, ([id number]) Left 14:14:29 Reinflate Distal SHOCKWAVE BALLOON 5 0 00:00 balloon Common 5.5 X 60 Femoral, ([id number]) Left 14:21:46 Reinflate Mid CHOCOLATE 3.0 x 1 0 00:00 balloon Posterior 80 x 150 balloon Tibial, ([id number]) Left 14:24:34 Inflate Mid CHOCOLATE 3.5 x 2 0 00:00 balloon Posterior 80 x 135 balloon Tibial, ([id number]) Left 14:32:35 Inflate Mid CHOCOLATE 3.0 x 3 0 00:00 balloon Posterior 120 x 150 balloon Tibial, ([id number]) Left 14:48:10 Inflate Mid NANO[place]OSS ELITE 1 0 00:00 balloon Anterior 3.0-2.5X210 Tibial, ([id number]) Left 14:50:12 Reinflate Mid [place]OSS ELITE 2 0 00:00 balloon Anterior 3.0-2.5X210 Tibial, ([id number]) Left 14:53:21 Inflate Mid [place]OSS ELITE 3 0 00:00 balloon Anterior 2.5MM-2 MM X 210 Tibial, X 150 Left ([id number]) Device Usage Item Name Manufacture Quantity Catalog Number [facility] Minimal Lot# / Charge Number Stock Stock Serial# Code ACIST Syringe Acist Medical 1 07397 784705 711878 984 755 20 (07141) Systems Inc ACIST Hand Acist Medical 1 31707 316427 704374 985 186 5 Control (86462) Systems Inc ACIST Manifold Acist Medical 1 92479 984335 830504 985 201 5 (66645) Systems Inc Bag Decanter Microtek 1 2001S 524520 17328 982 920 5 (2001S) Medical Inc. Sterile Cardinal 1 [id number] 131253 997 525 5 Angiographic Pack Health Tegaderm 4 x 4 3M 1 1626W 451178 858071 988 964 5 (1626W) GLIDE WIRE ANGLE Terumo 1 DM5915 908705 025701 999 269 5 260cm (PC5599) FIGUEROA 260 wire Cook Medical 1 M37812 900546 548839 999 304 5 (R99597) GLIDE CATHETER Terumo 1 CG507 900768 999 525 5 5FR ANGLED 65cm (CG507) DOC Extension Stroud 1 48284 276742 462887 999 967 5 wire (05788) Vascular Angiodynamics SOS Angiodynamics 1 02257807 578645 74426 999 884 5 OMNI 2 NON B 5FR 65CM catheter ([id number]) SHEATH 5FR Terumo 1 OCZ122 387501 986243 993 078 5 Hopkins (TKV011) AMPLATZ Super [place] 1 [id number] 364662 766942 999 781 5 Stiff 75cm wire Scientific ([id number]) TORQUE DEVICE [place] 1 TD01 738625 339211 999 103 5 PLASTIC .038 ( Scientific TD01) SHEATH Terumo 1 RSP01 160711 44055 999 991 1 DESTINATION 6FR X 65CM (RSP01) CHOICE PT Extra [place] 1 [id number] 24081120 998 682 5 Support J 300cm Scientific guide wire ([id number]) INFLATOR Merit Medical 1 FQ7622 231272 842859 999 504 5 BasixTOUCH (SU3358) CXI Catheter 90cm [facility] [employer] 1 G61357 302753 986102 999 842 5 (O73818) CXI SUPPORT .035 [facility] [employer] 1 E08154 006657 296785 999 706 5 135 CM STR catheter (C05536) SHOCKWAVE BALLOON SHOCKWAVE 1 [id number] 610416 2647864 999 9996 1 5.5 X 60 MEDICAL ([id number]) CHOCOLATE 3.0 x Medtronic 1 [id number] O 189022 225246 999 990 5 80 x 150 balloon TW ([id number]) CHOCOLATE 3.5 x Medtronic 1 [id number] O 064079 041278 999 997 5 80 x 135 balloon TW ([id number]) CHOCOLATE 3.0 x Medtronic 1 [id number] O 292365 295604 999 981 5 120 x 150 balloon TW ([id number]) NANOCROSS ELITE Medtronic 1 [id number] 224087 999 988 1 3.0-2.5X210 ([id number]) NANOCROSS ELITE Medtronic 1 [id number] 931028 999 974 1 2.5MM-2 MM X 210 X 150 ([id number]) SHEATH 6FR Terumo 1 EIT673 753128 820401 994 304 40 Hopkins (GTM403) EXOSEAL 6Fr Cardinal 1 EX600 193734 054181 995 431 10 (EX600) Health Signature Audit [place] Stage Time Signature Unsigned Intra-Procedure 01/25/2021 BENEDICT ART RT 3:18:46 PM (R) [id number] [place] [address]
[2021-01-25 10:39] LABS: BASOPHILS 0.4 % (0-2); EOSINOPHILS 1.9 % (0-7); HEMATOCRIT 32.3 % (42.0-54.0); HEMOGLOBIN 11.5 g/dL (13.5-17.5); IMMATURE GRANULOCYTES 0.1 % (0-5); LYMPHOCYTES 46.8 % (15-50); MCH 31.3 pg (26.0-34.0); MCHC 35.6 g/dL (31.0-37.0); MCV 87.8 fL (80.0-100.0); MONOCYTES 7.5 % (2-11); NEUTROPHIL ABS# 3.33 10x3/uL (1.78-5.38); NEUTROPHILS 43.3 % (40-80); PLATELET COUNT 145 10x3/uL (130-400); RBC 3.68 10x6/uL (4.20-6.10); RDW 13.3 % (11.5-14.5); WBC 7.7 10x3/uL (4.8-10.8)
[2021-01-25 10:50] LABS: APTT 37.9 SECONDS (22.8-39.4); INR 1.47 (0.85-1.17); PROTIME 16.6 SECONDS (11.6-15.0)
[2021-01-25 10:51] LABS: CALC OSMOLALITY 286 mosm/kg (275-300); CALCIUM 9.2 mg/dL (8.5-10.1); CHLORIDE - SERUM 106 mmol/L (98-107); GLUCOSE 165 mg/dL (74-106); POTASSIUM - SERUM 4.4 mmol/L (3.5-5.1); SODIUM 139 mmol/L (136-145); UREA NITROGEN 26 mg/dL (7-18); eGFR NON AFRICAN AMERICAN 82 mL/min (90-120)
[2021-01-25] MEDS ORDERED: TOPROL XL25 MG PO (11:35)
[2021-01-25 11:47] VITALS: Ht 182.9 cm; Wt 90.9 kg
--- NOTE | 2021-01-25 17:27 | NUR ---
DR MICHEL AT BEDSIDE. PT BLAS
--- NOTE | 2021-01-25 18:14 | NUR ---
1800 IV REMOVE AND PRESSURE HELD AND INSTRUCTIONS GIVEN,
== END 2021-01-25 18:15 | disposition home or self-care (01) ==
LOC: D.RAD 10:21
PROVIDERS: ATTEND General Practice
DX: I70.213 Atherosclerosis of native arteries of extremities with intermittent claudication, bilateral legs (principal)
CPT/HCPCS: 37228; 37232; C9764